=== PATIENT | male | born 1980 | race Caucasian/White ===

== ENCOUNTER 2023-04-05 06:44 | Outpatient (OUT) | payer OTHER, SELFPAY ==
[2023-04-13 00:08] LABS: Free Testosterone(Direct) 10.1 pg/mL (6.8-21.5); Testosterone 405 ng/dL (264-916)
== END 2023-04-05 06:45 | disposition home or self-care (01) ==
DX: E29.1 Testicular hypofunction (principal); N52.9 Male erectile dysfunction, unspecified
CPT/HCPCS: 36415; 84402; 84403

== ENCOUNTER 2024-01-05 04:32 | Emergency (ER) | payer OTHER, SELFPAY ==
[2024-01-05 04:35] VITALS: BP 163/93; PULSE 55; TEMP 36.4; O2SAT 96; BMI 55.4
--- NOTE | 2024-01-05 05:01 | CT_ITS ---
The [address] [address] Patient Name: AB ALMANZA MRN: [id number] date: 1980 Sex: M Assigned Patient Location: ER Current Patient Location: ER Accession/Order Number: [id number] Exam Date: 01/05/2024 05:16 Report Date: 01/05/2024 06:43 At the request of: NARGIS WAYNE Procedure: CT abdomen pelvis wo con EXAM: CT abdomen pelvis wo con HISTORY: Right lower quadrant pain; technologist notes state right flank pain for one day, constipation and history of kidney stones. COMPARISON: CT abdomen/pelvis dated 08/14/2014. TECHNIQUE: Routine CT abdomen/pelvis without intravenous contrast. FINDINGS: Right kidney: There is a 0.4 x 0.4 cm obstructing calculus within the proximal right ureter with mild right pelvocaliectasis and mild right hydroureter. There is mild stranding density adjacent to the right renal pelvis and proximal right ureter. The right kidney and right ureter are otherwise unremarkable. Left kidney: Unremarkable. Urinary bladder: Almost completely collapsed however grossly unremarkable. There is no bladder calculus. Lower chest: Unremarkable. Solid organs: The liver is enlarged and fatty infiltrated measuring 19.7 cm in longitudinal dimension. The gallbladder and biliary tree are unremarkable. The pancreas and spleen are unremarkable. The bilateral adrenal glands are unremarkable. Bowel: Nonobstructive bowel gas pattern with a small to moderate amount of stool within the colon. There are a few colonic diverticula without diverticulitis. The appendix is normal. The distal esophagus, stomach and small bowel are unremarkable. Inflammation: There is no free air or free fluid. Vasculature: The abdominal aorta and the IVC are unremarkable. Lymphadenopathy: There are no pathologically enlarged lymph nodes. Pelvis: The prostate gland is normal size. There are a couple phleboliths within the pelvis. Musculoskeletal: There is a small fat-containing umbilical hernia. There is slight scoliotic curvature. There are bilateral L5 pars defects with 0.7 cm anterolisthesis of L5 on S1. There are discogenic degenerative changes at several levels along the thoracolumbar spine, most prominent and severe at L5-S1. CT/CT abdomen pelvis wo con IMPRESSION: There is a 0.4 x 0.4 cm obstructing calculus within the proximal right ureter with mild right pelvocaliectasis and mild right hydroureter. There is mild stranding density adjacent to the right renal pelvis and proximal right ureter. Nonobstructive bowel gas pattern with a small amount of stool within the colon. There are a few colonic diverticula without diverticulitis. The appendix is unremarkable. The liver is enlarged and fatty infiltrated measuring 19.7 cm in longitudinal dimension. The lateral L5 pars defects with 0.7 cm anterolisthesis of L5 on S1. Electronically authenticated by: CARY PENNINGTON Date: 01/05/2024 06:43
--- NOTE | 2024-01-05 05:02 | ED.ABDPAIN1 ---
HPI - Abdominal Pain General Chief Complaint: Abdominal Pain Stated Complaint: BACK PAIN Time Seen by Provider: 01/05/24 04:58 Source: patient Mode of arrival: walk-in Limitations: no limitations History of Present Illness HPI narrative: patient presents with pain of his back that started last PM. Points to right flank area . Pain has radiated to RLQ. Denies similar pain in the past. No fever or nausea. Feels like he has to have a BM. No urinary symptoms Related Data Home Medications ?Medication ?Instructions ?Recorded ?Confirmed tamsulosin 0.4 mg capsule 0.4 mg PO Q24H 01/05/24 01/05/24 testosterone 1 pump topical DAILY 01/05/24 01/05/24 Allergies Allergy/AdvReac Type Severity Reaction Status Date / Time No Known Drug Allergies Allergy Verified 01/05/24 04:39 Review of Systems ROS Status of ROS 10 or more systems reviewed and unremarkable except as noted in history and below Exam Constitutional Vital Signs, click to edit/add: Last Vital Signs Temp 97.6 F 01/05/24 04:35 Pulse 60 01/05/24 06:14 Resp 14 01/05/24 06:14 BP 163/93 H 01/05/24 04:35 Pulse Ox 96 01/05/24 06:14 O2 Del Method Room Air 01/05/24 04:35 Common normals: no apparent distress, average body habitus, oriented x3, no limitations, healthy appearing, alert and well nourished [facility] Common normals: normocephalic and head/scalp atraumatic Eye Common normals: EOMs intact bilaterally and conjunctivae normal Respiratory Common normals: normal respiratory effort, no retractions, no use of accessory muscles and clear to auscultation bilaterally Cardio Common normals: regular rate, regular rhythm, S1 normal heart sound and S2 normal heart sound GI Common normals: Normal to inspection, nondistended, normoactive bowel sounds present, soft to palpation and non-tender Extremity Common normals: normal to inspection and full ROM Neuro Common normals: oriented x3, CN's II-XII intact bilaterally, moves all extremities and no focal motor deficits Psych Appearance: grossly normal Course Vital Signs Vital signs: Vital Signs Temperature 97.6 F 01/05/24 04:35 Pulse Rate 55 L 01/05/24 04:35 Respiratory Rate 18 01/05/24 04:35 Blood Pressure 163/93 H 01/05/24 04:35 Pulse Oximetry 96 01/05/24 04:35 Oxygen Delivery Method Room Air 01/05/24 04:35 Temperature 97.6 F 01/05/24 04:35 Pulse Rate 60 01/05/24 06:14 Respiratory Rate 14 01/05/24 06:14 Blood Pressure 163/93 H 01/05/24 04:35 Pulse Oximetry 96 01/05/24 06:14 Oxygen Delivery Method Room Air 01/05/24 04:35 MDM - Abdominal Pain MDM Narrative Medical decision making narrative: patient presents with right flank pain radiating to RLQ. CT demonstrates 4mm stone. labs pending. Care transferred at change of shift Lab Data Labs: Lab Results 01/05/24 Range/Units 04:43 WBC 10.6 (4.0-11.0) 10^3/uL RBC 5.15 (4.70-6.10) 10^6/uL Hgb 15.5 (14.0-18.0) g/dL Hct 45.7 (42.0-54.0) % MCV 88.7 (80.0-94.0) fL MCH 30.1 (25.9-34.0) pg MCHC 33.9 (29.9-35.2) g/dL RDW 12.7 (11.0-15.0) % Plt Count 165 (150-450) 10^3/uL MPV 10.8 (9.5-13.5) fL Neut % (Auto) 72.2 (43.0-75.0) % Lymph % (Auto) 17.2 L (20.5-60.0) % Benson % (Auto) 7.7 (1.7-12.0) % Eos % (Auto) 1.8 (0.9-7.0) % Baso % (Auto) 0.8 (0.2-2.0) % Neut # (Auto) 7.6 H (1.4-6.5) 10^3/uL Lymph # (Auto) 1.8 (1.2-3.8) 10^3/uL Benson # (Auto) 0.8 (0.3-0.8) 10^3/uL Eos # (Auto) 0.2 (0.0-0.7) 10^3/uL Baso # (Auto) 0.1 (0.0-0.1) 10^3/uL Abs Immat Gran (auto) 0.03 (0.00-0.03) 10^3/uL Imm/Tot Granulo (auto) 0.3 (0.0-0.5) % Sodium 138 (136-145) mmol/L Potassium 3.9 (3.5-5.1) mmol/L Chloride 101 (98-107) mmol/L Carbon Dioxide 26.5 (21.0-32.0) mmol/L Anion Gap 14.4 BUN 15.0 (7.0-18.0) mg/dL Creatinine 1.22 (0.70-1.30) mg/dL Est GFR ( Amer) >60 (>=60) Est GFR (Non-Af Amer) >60 (>=60) BUN/Creatinine Ratio 12.3 Glucose 122 H (74-106) mg/dL Calcium 9.3 (8.5-10.1) mg/dL Imaging Data Chest x-ray: Radiologist's impression: ITS Impressions Abdomen/Pelvis CT 01/05/24 05:01 IMPRESSION: There is a 0.4 x 0.4 cm obstructing calculus within the proximal right ureter with mild right pelvocaliectasis and mild right hydroureter. There is mild stranding density adjacent to the right renal pelvis and proximal right ureter. Nonobstructive bowel gas pattern with a small amount of stool within the colon. There are a few colonic diverticula without diverticulitis. The appendix is unremarkable. The liver is enlarged and fatty infiltrated measuring 19.7 cm in longitudinal dimension. The lateral L5 pars defects with 0.7 cm anterolisthesis of L5 on S1. Electronically authenticated by: CARY PENNINGTON Date: 01/05/2024 06:43 Discharge Plan Discharge Patient Disposition: Still a Patient
[2024-01-05 05:08] LABS: Basophils Absolute Auto 0.1 10^3/uL (0.0-0.1); Basophils Percent Auto 0.8 % (0.2-2.0); Eosinophils Absolute Auto 0.2 10^3/uL (0.0-0.7); Eosinophils Percent Auto 1.8 % (0.9-7.0); Hematocrit 45.7 % (42.0-54.0); Hemoglobin 15.5 g/dL (14.0-18.0); Immature Granulocytes Abs Auto 0.03 10^3/uL (0.00-0.03); Immature Granulocytes Pct Auto 0.3 % (0.0-0.5); Lymphocytes Absolute Auto 1.8 10^3/uL (1.2-3.8); Lymphocytes Percent Auto 17.2 % (20.5-60.0); Mean Corpuscular HGB Conc 33.9 g/dL (29.9-35.2); Mean Corpuscular Hemoglobin 30.1 pg (25.9-34.0); Mean Corpuscular Volume 88.7 fL (80.0-94.0); Mean Platelet Volume 10.8 fL (9.5-13.5); Monocytes Absolute Auto 0.8 10^3/uL (0.3-0.8); Monocytes Percent Auto 7.7 % (1.7-12.0); Neutrophils Absolute Auto 7.6 10^3/uL (1.4-6.5); Neutrophils Percent Auto 72.2 % (43.0-75.0); Platelet Count 165 10^3/uL (150-450); Red Blood Count 5.15 10^6/uL (4.70-6.10); Red Cell Distribution Width 12.7 % (11.0-15.0); White Blood Count 10.6 10^3/uL (4.0-11.0)
[2024-01-05 05:13] LABS: Anion Gap 14.4; BUN Creatinine Ratio 12.3; Calcium 9.3 mg/dL (8.5-10.1); Carbon Dioxide 26.5 mmol/L (21.0-32.0); Chloride 101 mmol/L (98-107); Estimated GFR (African America >60 (>=60); Estimated GFR (Non-African Ame >60 (>=60); Glucose 122 mg/dL (74-106); Potassium 3.9 mmol/L (3.5-5.1); Sodium 138 mmol/L (136-145)
[2024-01-05] MEDS: 0.9 % SODIUM CHLORIDE 1,000 ML 999 ML IV (05:31)
[2024-01-05] MEDS: KETOROLAC TROMETHAMINE 30 MG/ML VIAL IVP (05:31)
[2024-01-05 06:14] VITALS: PULSE 60; O2SAT 96
[2024-01-05] MEDS: 0.9 % SODIUM CHLORIDE 1,000 ML 1000 ML IV (07:03)
[2024-01-05 07:47] LABS: Bilirubin Urine SMALL (NEGATIVE); Blood Urine LARGE (NEGATIVE); Clarity Urine CLEAR (CLEAR); Color Urine YELLOW (YELLOW); Glucose Urine UA NEGATIVE (NEGATIVE); Ketones Urine 40 mg/dL (NEGATIVE); Leukocyte Esterase Urine NEGATIVE (NEGATIVE); Nitrite Urine NEGATIVE (NEGATIVE); Protein Urine NEGATIVE (NEG/TRACE); Specific Gravity Urine >=1.030 (1.005-1.025); Urobilinogen Urine 0.2 EU/dL (0.2-1.0)
[2024-01-05 07:48] LABS: Urine Microscopic Indicated YES
[2024-01-05 08:01] LABS: Bacteria Urine NONE SEEN #/HPF (NONE SEEN); Cast Seen? NONE SEEN #/LPF (NONE SEEN); Crystals Seen? None Seen #/HPF (None Seen); Mucus Urine MODERATE (NONE SEEN); Squamous Epithelial Cell Urine NONE SEEN #/LPF (NONE/RARE); WBC Urine 0-2 #/HPF (NONE SEEN)
== END 2024-01-05 08:30 | disposition home or self-care (01) ==
PROVIDERS: Internal Medicine; Emergency Provider Emergency Medicine
DX: N20.0 Calculus of kidney (principal); Z79.899 Other long term (current) drug therapy
CPT/HCPCS: 36415; 74176; 80048; 81001; 85025; 96374; 99284